=== PATIENT | female | born 1945 | race Caucasian/White ===

== ENCOUNTER 2019-10-15 14:36 | Inpatient (IN) ==
--- NOTE | 2019-10-15 17:19 | Emergency Department Note ---
Impression & Plan Pulmonary embolism, bilateral, Acute deep vein thrombosis (DVT) of right lower extremity, Acute dyspnea, Weakness, Hypokalemia, Hypomagnesemia ED Provider Note Provider: Daryl Gregorio MD DATE OF SERVICE: 10/15/2019 CHIEF COMPLAINT: Fatigue, DVT HISTORY OF PRESENT ILLNESS: Patient is a 74-year-old female with a history of hypertension, CKD, iron deficiency anemia presenting today with a complaint for the last 3 months of worsening fatigue and shortness of breath as well as dry cough. No fevers reported. Patient was seen in the [facility] clinic yesterday and had a ultrasound of her legs done today due to swelling which did show a DVT in the right leg. Referred here for further evaluation. Patient states diffuse fatigue and occasionally having some pain in all of her extremities at various points. Bilateral legs are somewhat swollen. States she has been trying to elevate them. Denies chest pain or abdominal pain. Denies fever. Denies recent travel herself. Patient states he does quite easily fatigued. Patient states distant family history of blood clots but denies personal history. States her doctor did hold her amlodipine yesterday. REVIEW OF SYSTEMS: A total of 10 review of systems was obtained and negative except as stated above in the HPI. PAST MEDICAL HISTORY: As noted above MEDICATIONS: Reviewed home medication list not currently on amlodipine, chlorth alidone though FMH: An aunt with a history of DVT SOCIAL HISTORY: Lives at home, non-smoker, daughter is visiting from [place] brought her here today. PHYSICAL EXAM: GENERAL: alert and oriented in no acute distress on stretcher appears fatigued Head: normocephalic and atraumatic EYES: No injection, discharge or icterus. NECK: Trachea midline. Supple. ENT: Mucous membranes pink and moist. LUNGS: Airway patent. No retractions. Breath sounds clear but with some diminished bases HEART: Regular rate and occasionally irregular rhythm. No chest wall tenderness ABDOMEN: Soft and non-tender, without guarding or rebound. SKIN: Acyanotic, warm, dry, without rashes EXTREMITIES: With 2+ lower extremity edema bilaterally. NEUROLOGICAL: No focal deficits. No aphasia. No facial droop or slurred speech. EK bpm sinus rhythm PACs. No acute ST segment elevation. PAC notable with a QTC of 516. Nonspecific lateral ST and T wave flattening, no priors available CONTINUOUS CARDIAC MONITORING: was ordered and showed a heart rate of 79 bpm in sinus rhythm with occasional PAC Patient's hypertension was referred to the hospitalist HOSPITAL COURSE: 160 Patient was first seen and H&P performed. 1907 discussed with the patient findings and recommend admission. Heparin drip will be started. [facility] hospitalist to be contacted [phone] Lebron who will admit the patient. [id number] Patient reassessed and updated. Patient and daughter were updated. Patient's laboratory studies and imaging reviewed. Differential includes Reactive airway disease, pneumonia, pneumothorax, COPD, CHF, infections, cardiac ischemia, pulmonary embolism, musculoskeletal, gastrointestinal, as well as other pathologies. IMPRESSION/MEDICAL DECISION MAKING: Patient presents with several months of shortness of breath weakness with increased lower leg swelling. Outpatient ultrasound concerning for right lower extremity DVT. However given the patient's complaints concerns could be a more systemic process. Basic labs were obtained as well as a chest x-ray and EKG. Chest x-ray questions a possible left lower lobe infiltrate. Given this and her shortness of breath a CT scan of the chest was completed. Evidence of bilateral PEs in addition to the DVT in her right lower extremity. Has not had ultrasound left lower extremity but could very well be similar DVT here. No significant pulmonary edema and I doubt acute heart failure. Patient does have evidence of some hypokalemia and hypomagnesemia possibly due to her diuretics. Patient will be started on heparin drip for anticoagulation. Detectable but not abnormal troponin. No active chest pain at this time. Patient was agreement for further evaluation as an inpatient. Hospitalist to be contacted. Doubt this represents coronavirus. DIAGNOSIS: Bilateral pulmonary embolisms, right leg DVT, shortness of breath, weakness, hypomagnesemia, hypokalemia DISPOSITION: Hospitalist will evaluate Patient was agreeable with this plan. Critical Care I have personally spent 36 minutes of critical care time in the direct management of this patient. This includes bedside care, interpretation of diagnostic studies, and testing, discussion with consultants, patient, and family members, and other required patient management activities. These 36 minutes is in excess of all separately billable procedures. Past Med/Surg History Social History Feels Safe at Home: Yes Allergies Allergies Allergy/AdvReac Type Severity Reaction Status Date / Time ciprofloxacin [From Cipro] AdvReac Severe Nausea Verified 10/15/19 17:54 procaine [From Novocain] AdvReac Severe Nausea Verified 10/15/19 17:54 Home Meds Home Medications Medication Instructions Recorded Confirmed Ca-D3-mag ex-yyjs-wpk-shantal-bor 1 tab PO DAILY 10/15/19 10/15/19 [Calcium 600-D3 Plus (mag-zinc)] amlodipine 2.5 mg PO .ON HOLD 10/15/19 10/15/19 cetirizine 5 mg PO DAILY PRN 10/15/19 10/15/19 chlorthalidone 50 mg PO DAILY 10/15/19 10/15/19 ferrous sulfate [iron] 325 mg PO DIRECTED 10/15/19 10/15/19 multivitamin 1 tab PO DAILY 10/15/19 10/15/19 potassium chloride [Klor-Con M20] 20 meq PO DAILY 10/15/19 10/15/19 turmeric root extract 500 mg PO DAILY 10/15/19 10/15/19 Results & Data (ED) Vital Signs Vital Signs - 24 hr 10/15/19 14:41 10/15/19 16:00 10/15/19 17:00 Temperature 37.2 C Temperature Source Oral Pulse Rate 82 Pulse Rate [Right Finger] 80 80 Pulse Rate from SpO2 Sensor Respiratory Rate 18 20 20 Respiratory Effort / Characteristics Non-Labored Non-Labored Spontaneous Non-Labored Spontaneous Respiratory Depth Normal Normal Normal Respiratory Pattern Regular Regular Regular Blood Pressure 171/101 H Blood Pressure [Right Arm] 168/99 H 165/95 H Blood Pressure Mean 124 Blood Pressure Mean [Right Arm] 122 118 Blood Pressure Position Sitting Blood Pressure Position [Right Arm] Lying Lying Pulse Oximetry 97 97 97 Oxygen Delivery Method Room Air Room Air Room Air Sepsis Recent Fever Within 48 Hours No Sepsis Action Taken by Nursing No Action Required 10/15/19 18:00 10/15/19 19:11 10/15/19 19:12 Temperature Temperature Source Pulse Rate 77 Pulse Rate [Right Finger] 80 75 Pulse Rate from SpO2 Sensor 77 Respiratory Rate 20 16 20 Respiratory Effort / Characteristics Non-Labored Spontaneous Non-Labored Spontaneous Respiratory Depth Normal Normal Respiratory Pattern Regular Blood Pressure 139/74 Blood Pressure [Right Arm] 158/99 H 139/74 Blood Pressure Mean 120 Blood Pressure Mean [Right Arm] 118 95 Blood Pressure Position Blood Pressure Position [Right Arm] Lying Lying Pulse Oximetry 97 98 99 Oxygen Delivery Method Room Air Room Air Sepsis Recent Fever Within 48 Hours Sepsis Action Taken by Nursing 10/15/19 21:26 Temperature Temperature Source Pulse Rate Pulse Rate [Right Finger] 89 Pulse Rate from SpO2 Sensor Respiratory Rate 20 Respiratory Effort / Characteristics Respiratory Depth Respiratory Pattern Blood Pressure Blood Pressure [Right Arm] 175/88 H Blood Pressure Mean Blood Pressure Mean [Right Arm] 117 Blood Pressure Position Blood Pressure Position [Right Arm] Pulse Oximetry 98 Oxygen Delivery Method Room Air Sepsis Recent Fever Within 48 Hours Sepsis Action Taken by Nursing Laboratory Data Result diagrams: 10/15/19 17:37 10/15/19 17:37 Lab Results 10/15/19 10/15/19 10/15/19 Range/Units 17:37 17:37 17:37 WBC 7.14 (4.8-10.8) K/uL RBC 3.62 L (4.2-5.4) M/uL Hgb 9.6 L (12.0-16.0) g/dL Hct 31.6 L (37-47) % MCV 87.3 (80-100) fL MCH 26.5 (25-34) pg MCHC 30.4 L (32-36) g/dL RDW Std Deviation 45.9 (36.4-46.3) fL RDW Coeff of Simran 15.8 H (11.5-14.5) % Plt Count 337 (130-400) K/uL MPV 8.8 (7.4-10.4) fL Immature Gran % (Auto) 0.4 % Neut % (Auto) 65.1 % Lymph % (Auto) 20.4 % Refug[place] % (Auto) 9.1 % Eos % (Auto) 4.3 % Baso % (Auto) 0.7 % Neut # (Auto) 4.64 (1.4-6.5) K/uL Lymph # (Auto) 1.46 (1.2-3.4) K/uL [place] # (Auto) 0.65 H (0.11-0.59) K/uL Eos # (Auto) 0.31 (0-0.5) K/uL Baso # (Auto) 0.05 (0-0.2) K/uL Immature Gran # (Auto) 0.03 H (0.00-0.02) K/uL PT 10.7 (9.0-12.0) Seconds INR 1.0 (0.9-1.1) APTT (21.0-31.0) Seconds PTT Ratio Sodium 139 (136-145) mmol/L Potassium 2.8 L (3.5-5.1) mmol/L Chloride 104 (98-107) mmol/L Carbon Dioxide 27 (21-32) mmol/L Anion Gap 8.0 (3-11) BUN 13 (7-18) mg/dl Creatinine 1.21 H (0.6-1.2) mg/dl Est Cr Clr Drug Dosing 46.0 ml/min Est GFR ( Amer) 50.7 Est GFR (Non-Af Amer) 43.7 BUN/Creatinine Ratio 10.4 (10-20) Glucose 91 (70-99) mg/dl Calcium 8.9 (8.5-10.1) mg/dl Magnesium (1.8-2.4) mg/dl Total Bilirubin 0.4 (0.2-1) mg/dl AST 18 (15-37) U/L ALT 22 (12-78) U/L Alkaline Phosphatase 111 (45-117) U/L Troponin I 0.020 (0-0.045) ng/ml NT-Pro-B Natriuret Pep 419 (0-900) pg/ml Total Protein 7.1 (6.4-8.2) gm/dl Albumin 3.5 (3.4-5.0) gm/dl Globulin 3.6 (2.5-4.0) gm/dl Albumin/Globulin Ratio 1.0 (0.9-2) 10/15/19 10/15/19 Range/Units 17:37 17:37 WBC (4.8-10.8) K/uL RBC (4.2-5.4) M/uL Hgb (12.0-16.0) g/dL Hct (37-47) % MCV (80-100) fL MCH (25-34) pg MCHC (32-36) g/dL RDW Std Deviation (36.4-46.3) fL RDW Coeff of Simran (11.5-14.5) % Plt Count (130-400) K/uL MPV (7.4-10.4) fL Immature Gran % (Auto) % Neut % (Auto) % Lymph % (Auto) % Refug[place] % (Auto) % Eos % (Auto) % Baso % (Auto) % Neut # (Auto) (1.4-6.5) K/uL Lymph # (Auto) (1.2-3.4) K/uL [place]ug[place] # (Auto) (0.11-0.59) K/uL Eos # (Auto) (0-0.5) K/uL Baso # (Auto) (0-0.2) K/uL Immature Gran # (Auto) (0.00-0.02) K/uL PT (9.0-12.0) Seconds INR (0.9-1.1) APTT 24.6 (21.0-31.0) Seconds PTT Ratio 0.9 Sodium (136-145) mmol/L Potassium (3.5-5.1) mmol/L Chloride (98-107) mmol/L Carbon Dioxide (21-32) mmol/L Anion Gap (3-11) BUN (7-18) mg/dl Creatinine (0.6-1.2) mg/dl Est Cr Clr Drug Dosing ml/min Est GFR ( Amer) Est GFR (Non-Af Amer) BUN/Creatinine Ratio (10-20) Glucose (70-99) mg/dl Calcium (8.5-10.1) mg/dl Magnesium 1.7 L (1.8-2.4) mg/dl Total Bilirubin (0.2-1) mg/dl AST (15-37) U/L ALT (12-78) U/L Alkaline Phosphatase (45-117) U/L Troponin I (0-0.045) ng/ml NT-Pro-B Natriuret Pep (0-900) pg/ml Total Protein (6.4-8.2) gm/dl Albumin (3.4-5.0) gm/dl Globulin (2.5-4.0) gm/dl Albumin/Globulin Ratio (0.9-2) Administered Medications Ioversol (Optiray 320 125ml) 92 ml IV ONCE PRN PRN Reason: Interaction Checking Stop: 10/19/19 18:48 Last Admin: 10/15/19 18:50 Dose: 92 ml Documented by: [id number] Discontinued Medications Heparin Sodium/Dextrose () 1 ea IV NOW STA; Protocol Stop: 10/15/19 19:16 Last Admin: 10/15/19 20:44 Dose: Not Given Documented by: [id number] Heparin Sodium/Dextrose (Heparin Sodium/Dextrose) 25,000 units in 500 mls @ 0.02 mls/hr IV .Q24H [facility]; Protocol Stop: 11/14/19 19:14 Last Admin: 10/15/19 20:37 Dose: Not Given Documented by: [id number] Potassium Chloride (Klor-Con M20) 40 meq PO NOW STA Stop: 10/15/19 19:40 Last Admin: 10/15/19 21:23 Dose: 40 meq Documented by: [id number] Discharge Plan Visit Data Chief Complaint: Leg Injury/Pain Stated Complaint: BLOOD CLOT RIGHT LEFT ED Provider: Daryl Gregorio Discharge Problem: Pulmonary embolism, bilateral, Acute deep vein thrombosis (DVT) of right lower extremity, Acute dyspnea, Weakness, Hypokalemia, Hypomagnesemia Patient Disposition: Admitted As Inpatient Condition: Fair Forms Stand Alone Forms: [facility] [employer] Prescriptions Prescriptions: No Action multivitamin Tablet 1 tab PO DAILY RF: 0 cetirizine 10 mg Tablet 5 mg PO DAILY PRN (Reason: allergies) RF: 0 amlodipine 5 mg tablet 2.5 mg PO .ON HOLD RF: 0 chlorthalidone 50 mg tablet 50 mg PO DAILY RF: 0 potassium chloride [Klor-Con M20] 20 mEq tablet,ER particles/crystals 20 meq PO DAILY RF: 0 ferrous sulfate [iron] 325 mg (65 mg iron) tablet 325 mg PO DIRECTED RF: 0 turmeric root extract 500 mg Capsule 500 mg PO DAILY RF: 0 Ca-D3-mag gv-xyvh-etp-shantal-bor [Calcium 600-D3 Plus (mag-zinc)] 600 mg calcium- 800 unit-50 mg Tablet 1 tab PO DAILY RF: 0 Referrals Referrals: Grace Dietz MD [Primary Care Provider] - Discharge Problem: Acute deep vein thrombosis (DVT) of right lower extremity Qualifiers: Affected thrombotic vein of extremity: popliteal Qualified Code(s): I82.431 - Acute embolism and thrombosis of right popliteal vein
[2019-10-15 17:47] LABS: Basophils # (auto) 0.05 K/uL (0-0.2); Basophils % (auto) 0.7 %; Eosinophils # (auto) 0.31 K/uL (0-0.5); Eosinophils % (auto) 4.3 %; Hematocrit (blood only) 31.6 % (37-47); Hemoglobin 9.6 g/dL (12.0-16.0); Immature Granulocytes # (auto) 0.03 K/uL (0.00-0.02); Immature Granulocytes % (auto) 0.4 %; Lymphocytes # (auto) 1.46 K/uL (1.2-3.4); Lymphocytes % (auto) 20.4 %; Mean Corpuscular Hemoglobin 26.5 pg (25-34); Mean Corpuscular Hgb Conc 30.4 g/dL (32-36); Mean Corpuscular Volume 87.3 fL (80-100); Mean Platelet Volume 8.8 fL (7.4-10.4); Monocytes # (auto) 0.65 K/uL (0.11-0.59); Monocytes % (auto) 9.1 %; Neutrophils # (auto) 4.64 K/uL (1.4-6.5); Neutrophils % (auto) 65.1 %; Platelet Count 337 K/uL (130-400); RDW Coefficient of Variation 15.8 % (11.5-14.5); RDW Standard Deviation 45.9 fL (36.4-46.3); Red Blood Count 3.62 M/uL (4.2-5.4); White Blood Count 7.14 K/uL (4.8-10.8)
[2019-10-15 17:56] LABS: Prothrombin Time 10.7 Seconds (9.0-12.0)
--- NOTE | 2019-10-15 17:59 | XRay Report ---
XR chest 1V portable CLINICAL HISTORY: Shortness of breath COMPARISON STUDY: No previous studies for comparison. FINDINGS: The heart is enlarged. There is a nonspecific opacity at the left medial lung base, possibl y resenting a focal pneumonia although[a mass could appear similar. There are no pleural effusions. T here is mild vascular prominence without evidence of overt failure. IMPRESSION: 1. Left medial basilar opacity, possibly representing a pneumonia although a mass could appear simila r. Clinical and radiographic follow-up is recommended. ACT 112: Negative or not required by law. Electronically signed by: Jose D Clements M.D. 10/15/2019 5:58 PM
[2019-10-15 18:02] LABS: Albumin Level 3.5 gm/dl (3.4-5.0); BUN Creatinine Ratio 10.4 (10-20); Calcium 8.9 mg/dl (8.5-10.1); Est GFR (African American) 50.7; Est GFR (Non-African American) 43.7; Potassium 2.8 mmol/L (3.5-5.1)
[2019-10-15 18:07] LABS: Bilirubin,Total 0.4 mg/dl (0.2-1); Globulin 3.6 gm/dl (2.5-4.0); Total Protein 7.1 gm/dl (6.4-8.2); Troponin I 0.02 ng/ml (0-0.045)
[2019-10-15] MEDS ORDERED: OPTIRAY 320 125ml IV PRN (18:49)
--- NOTE | 2019-10-15 19:08 | CT Scan Report ---
CT ANGIOGRAM OF THE CHEST CLINICAL HISTORY: Shortness of breath. DVT. Right leg swelling. Possible acute pulmonary embolism. AB NORMAL CHEST X-RAY COMPARISON STUDY: Chest x-ray dated 10/15/2019 TECHNIQUE: Following the IV administration of 92 mL of Optiray-320, CT angiogram of the thorax was pe rformed from the thoracic inlet to the lung bases utilizing the pulmonary embolus protocol. Images ar e reviewed in the axial, sagittal, and coronal planes. IV contrast was administered without complicat ion. MIP imaging was performed. A dose lowering technique was utilized adhering to the principles of ALARA. CT DOSE: 649.08 mGy.cm FINDINGS: No pathologically enlarged axillary mediastinal or hilar lymph nodes were visualized. There was no evidence of thoracic aortic dilatation. There are pulmonary filling defects within the left upper lobe and right lower lobe indicative of acu te pulmonary embolism. No pleural effusions are visualized. There is no lobar consolidation. There are dependent atelectatic changes. The opacity described on th e chest x-ray at the left medial lung base is secondary to a hiatal hernia. There is a solid 6.4 mm s ubpleural right lower lobe pulmonary nodule. There are 2 solid left lower lobe pulmonary nodules, the largest of which measures 5 mm. IMPRESSION: 1. Acute bilateral pulmonary embolism 2. Bilateral solid pulmonary nodules measuring up to 6.4 mm. A six-month follow-up CT scan is recomme nded. Please refer to below summary of Fleischner criteria recommendations for follow-up of incidental CT n odules (Brooklynn Roche, Guidelines for management of small pulmonary nodules detected on CT scans: A sta tement from the Fleischner Society, Radiology 237: [phone].) SOLID NODULES Solitary nodule size: <6 mm * low risk patients: no follow-up needed * high risk patients: optional CT at 12 months Solitary nodule size: 6-8 mm * low risk patients: follow-up at 6-12 months, then consider further follow-up at 18-24 months * high risk patients: initial follow-up CT at 6-12 months and then at 18-24 months if no change Solitary nodule size: >8 mm * either low or high risk patients - consider follow-up CT at 3 months, and/or CT-PET, and/or biopsy Multiple nodules size: <6 mm * low risk patients: no routine follow-up * high risk patients: optional CT at 12 months Multiple nodules size: 6-8 mm * low risk patients: follow-up at 3-6 months, then consider further follow-up at 18-24 months * high risk patients: follow-up at 3-6 months, then at 18-24 months if no change Multiple nodules size: >8 mm * low risk patients: follow-up at 3-6 months, then consider further follow-up at 18-24 months * high risk patients: follow-up at 3-6 months, then at 18-24 months if no change Note: newly detected indeterminate nodule in persons 35 years of age or older. * low risk patients: minimal or absent history of smoking and/or other known risk factors * high risk patients: history of smoking or of other known risk factors (e.g. first degree relative with lung cancer, or exposure to asbestos, radon, uranium) * if a nodule up to 8 mm is partly solid or is ground glass further follow-up is required after 24 m onths to exclude possible slow growing adenocarcinoma (HUGO) SUBSOLID NODULES Solitary pure ground-glass nodule * nodule size <6 mm - no CT follow-up required * nodule size >=6 mm - follow-up CT at 6-12 months, then every 2 years until 5 years Solitary part-solid nodule * nodule size <6 mm - no CT follow-up required * nodule size >=6 mm - follow-up CT at 3-6 months. If unchanged, and solid component remains <6 mm, then annual follow-up for 5 years Multiple subsolid nodules * nodule size <6 mm - follow-up CT at 3-6 months, consider further follow-up at 2 and 4 years if sta ble * nodule size >=6 mm - follow-up CT at 3-6 months, subsequent management based on the most suspiciou s nodule(s) ACT 112: Negative or not required by law. Electronically signed by: Jose D Clements M.D. 10/15/2019 7:07 PM
[2019-10-15] MEDS ORDERED: HEPARIN SODIUM/DEXTROSE 25,000 UNITS/500 ML BAG IV SCH (19:15)
[2019-10-15] MEDS ORDERED: POTASSIUM CHLORIDE 20 MEQ TABCR PO STA (19:39)
[2019-10-15 20:00] LABS: Magnesium 1.7 mg/dl (1.8-2.4)
[2019-10-15] MEDS ORDERED: PANTOprazole 40 MG TAB PO STA (21:21)
--- NOTE | 2019-10-15 21:21 | History & Physical Report ---
Date of Service October 15, 2019 Assessment & Plan (1) Pulmonary thromboembolism: First episode Unclear precipitant except for illness a few months ago Family history of blood clots as per patient hypertension, slight elevated Chronic anemia secondary to DIANA, hemoglobin stable at 9 secondary to likely UGIB (hx dark stools prior to recent EGD showing gastritis, duodenitis, hiatal hernia with clean based ulcer) and CKD Pulmonary nodules on CT Fatigue, sleepiness, exertional S OB, snoring hx rule out pulmonary HTN from possible sleep disordered breathing Hypokalemia secondary to home diuretic Rx Medical telemetry IV heparin Defer discussion regarding choice for home oral anticoagulation between patient and AM provider. PPI for GI prophylaxis while on anticoagulation given abnormal EGD if GI okay TTE RE exertional S OB rule out for hypertension, outpatient sleep study Outpatient follow-up surveillance imaging for pulmonary nodules on CT Replace electrolytes, hold home diuretics for now DVT prophylaxis IV heparin Full code Case discussed with Dr. Denise (GI specialist [facility] [employer].) He recommends initiating Protonix tablet once daily for patient given abnormal EGD and need for anticoagulation. Text document was generated using [employer] voice recognition software. It may contain grammatical or spelling errors. Kindly contact undersigned for clarification of any documentation item in question. History of Present Illness Chief Complaint: Shortness of breath, leg blood clots, sent by PCP Primary Care Provider: Grace Dietz MD History obtained from patient, family, and records. Medical history significant for hypertension, chronic renal insufficiency (baseline creatinine 1.4), chronic anemia (baseline hemoglobin of 9), morbid obesity. Patient is a resident of [place] who has been staying at her home in [place], [place] since last year to fix her local home to be able to sell it. 3 months history of chronic dry cough with shortness of breath usually on exertion. Body aches for which patient will take OTC aspirin. Sleepiness at home as per patient. Denies unusual headache symptoms. Leg swelling partially responsive to home diuretic Rx. 2 weeks ago, patient requested for blood work to be done at PCP's office because of feeling rundown. Occasional dark stools without abdominal pain as per patient. Outpatient hemoglobin noted to be 9.8. Anemia work-up consistent with iron deficiency. Outpatient COVID-19 test was negative. Patient started on iron supplements. Outpatient EGD last week showed normal esophagus, medium-sized hiatal hernia with clean-based ulcer. 1 suspected erosion. Gastritis and duodenitis. H. pylori testing was negative. Outpatient colonoscopy showed diverticulosis and polyp. Worsening shortness of breath, R leg swelling, fatigue symptoms in the next last few days. No chest pain. Dark stools without abdominal pain. Patient seen at PCPs office. Outpatient RLE venous Doppler showed nonocclusive thrombus right popliteal vein extending through peroneal and posterior tibial veins possibly acute. Soft tissue edema noted on the right cough. Patient directed to the ER for evaluation. IV heparin started at the ER for pulmonary embolism. Medical History as above Surgical History : Hysterectomy, carpal tunnel surgery, SUKHWINDER Family History : Blood clots, colon cancer, gallbladder cancer Personal/Social history : Non-smoker, occasional EtOH intake, retired from office work Allergies Allergy/AdvReac Type Severity Reaction Status Date / Time ciprofloxacin [From Cipro] AdvReac Severe Nausea Verified 10/15/19 17:54 procaine [From Novocain] AdvReac Severe Nausea Verified 10/15/19 17:54 Home Medications Home Medications Medication Instructions Recorded Confirmed Type Ca-D3-mag ch-ldqz-eus-shantal-bor 1 tab PO DAILY 10/15/19 10/15/19 History [Calcium 600-D3 Plus (mag-zinc)] amlodipine 2.5 mg PO .ON HOLD 10/15/19 10/15/19 History cetirizine 5 mg PO DAILY PRN 10/15/19 10/15/19 History chlorthalidone 50 mg PO DAILY 10/15/19 10/15/19 History ferrous sulfate [iron] 325 mg PO DIRECTED 10/15/19 10/15/19 History multivitamin 1 tab PO DAILY 10/15/19 10/15/19 History potassium chloride [Klor-Con M20] 20 meq PO DAILY 10/15/19 10/15/19 History turmeric root extract 500 mg PO DAILY 10/15/19 10/15/19 History Past Med/Surg History Social History Preferred Language: Citizen Of [place] Communication Ability: Effective 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 Beliefs That Will Affect Care: None Current Living Situation: Alone Other Information That Helps Us Care for You: No Feels Safe at Home: Yes Safety Concerns: Feels Safe At This Time Smoking Status: Never smoker Second Hand Exposure: Yes ; Hx Alcohol Use: No Hx Substance Use: No Review of Systems Review of Systems: As per HPI, all 10 systems reviewed, all other ROS negative Physical Exam Physical Exam: GENERAL: uncomfortable, slightly anxious, morbidly obese, no respiratory distress SKIN: Pallor , warm HEENT: Bespectacled, pale palpebral conjunctivae, no ptosis, dry buccal mucosa NECK : Supple, short neck, no tenderness CHEST : Decreased breath sounds , no tenderness HEART : RRR, no obvious murmurs ABDOMEN: Some distention, nontender EXTREMITIES : Bilateral LE swelling, R>L, RLE tenderness, no other conspicuous deformities noted NEUROLOGIC : Coherent, no facial asymmetry, no other gross focality Results & Data Results & Data ([facility]) Vital Signs (Past 12 Hours) Vital Signs Temp Pulse Pulse Resp BP BP Pulse Ox 10/15/19 19:12 75 20 139/74 99 10/15/19 18:00 80 20 158/99 H 97 10/15/19 17:00 80 20 165/95 H 97 10/15/19 16:00 80 20 168/99 H 97 10/15/19 14:41 37.2 C 82 18 171/101 H 97 Laboratory Results Laboratory Results WBC 7.14 K/uL (4.8-10.8) 10/15/19 17:37 RBC 3.62 M/uL (4.2-5.4) L 10/15/19 17:37 Hgb 9.6 g/dL (12.0-16.0) L 10/15/19 17:37 Hct 31.6 % (37-47) L 10/15/19 17:37 MCV 87.3 fL (80-100) 10/15/19 17:37 MCH 26.5 pg (25-34) 10/15/19 17:37 MCHC 30.4 g/dL (32-36) L 10/15/19 17:37 RDW Std Deviation 45.9 fL (36.4-46.3) 10/15/19 17:37 RDW Coeff of Simran 15.8 % (11.5-14.5) H 10/15/19 17:37 Plt Count 337 K/uL (130-400) 10/15/19 17:37 MPV 8.8 fL (7.4-10.4) 10/15/19 17:37 Immature Gran % (Auto) 0.4 % 10/15/19 17:37 Neut % (Auto) 65.1 % 10/15/19 17:37 Lymph % (Auto) 20.4 % 10/15/19 17:37 [place] % (Auto) 9.1 % 10/15/19 17:37 Eos % (Auto) 4.3 % 10/15/19 17:37 Baso % (Auto) 0.7 % 10/15/19 17:37 Neut # (Auto) 4.64 K/uL (1.4-6.5) 10/15/19 17:37 Lymph # (Auto) 1.46 K/uL (1.2-3.4) 10/15/19 17:37 [place] # (Auto) 0.65 K/uL (0.11-0.59) H 10/15/19 17:37 Eos # (Auto) 0.31 K/uL (0-0.5) 10/15/19 17:37 Baso # (Auto) 0.05 K/uL (0-0.2) 10/15/19 17:37 Immature Gran # (Auto) 0.03 K/uL (0.00-0.02) H 10/15/19 17:37 PT 10.7 Seconds (9.0-12.0) 10/15/19 17:37 INR 1.0 (0.9-1.1) 10/15/19 17:37 Sodium 139 mmol/L (136-145) 10/15/19 17:37 Potassium 2.8 mmol/L (3.5-5.1) L 10/15/19 17:37 Chloride 104 mmol/L (98-107) 10/15/19 17:37 Carbon Dioxide 27 mmol/L (21-32) 10/15/19 17:37 Anion Gap 8.0 (3-11) 10/15/19 17:37 BUN 13 mg/dl (7-18) 10/15/19 17:37 Creatinine 1.21 mg/dl (0.6-1.2) H 10/15/19 17:37 Est Cr Clr Drug Dosing 46.0 ml/min 10/15/19 17:37 Est GFR ( Amer) 50.7 10/15/19 17:37 Est GFR (Non-Af Amer) 43.7 10/15/19 17:37 BUN/Creatinine Ratio 10.4 (10-20) 10/15/19 17:37 Glucose 91 mg/dl (70-99) 10/15/19 17:37 Calcium 8.9 mg/dl (8.5-10.1) 10/15/19 17:37 Magnesium 1.7 mg/dl (1.8-2.4) L 10/15/19 17:37 Total Bilirubin 0.4 mg/dl (0.2-1) 10/15/19 17:37 AST 18 U/L (15-37) 10/15/19 17:37 ALT 22 U/L (12-78) 10/15/19 17:37 Alkaline Phosphatase 111 U/L (45-117) 10/15/19 17:37 Troponin I 0.020 ng/ml (0-0.045) 10/15/19 17:37 NT-Pro-B Natriuret Pep 419 pg/ml (0-900) 10/15/19 17:37 Total Protein 7.1 gm/dl (6.4-8.2) 10/15/19 17:37 Albumin 3.5 gm/dl (3.4-5.0) 10/15/19 17:37 Globulin 3.6 gm/dl (2.5-4.0) 10/15/19 17:37 Albumin/Globulin Ratio 1.0 (0.9-2) 10/15/19 17:[address] chest : 1. Acute bilateral pulmonary embolism 2. Bilateral solid pulmonary nodules measuring up to 6.4 mm. A six-month follow- up CT scan is recommended. Please refer to below summary of Fleischner criteria recommendations for follow- up of incidental CT nodules (Brooklynn Roche, Guidelines for management of small pulmonary nodules detected on CT scans: A statement from the Fleischner Society, Radiology 237: [id number].) SOLID NODULES Solitary nodule size: <6 mm * low risk patients: no follow-up needed * high risk patients: optional CT at 12 months Solitary nodule size: 6-8 mm * low risk patients: follow-up at 6-12 months, then consider further follow-up at 18-24 months * high risk patients: initial follow-up CT at 6-12 months and then at 18-24 months if no change Solitary nodule size: >8 mm * either low or high risk patients - consider follow-up CT at 3 months, and/or CT-PET, and/or biopsy Multiple nodules size: <6 mm * low risk patients: no routine follow-up * high risk patients: optional CT at 12 months Multiple nodules size: 6-8 mm * low risk patients: follow-up at 3-6 months, then consider further follow-up at 18-24 months * high risk patients: follow-up at 3-6 months, then at 18-24 months if no change Multiple nodules size: >8 mm * low risk patients: follow-up at 3-6 months, then consider further follow-up at 18-24 months * high risk patients: follow-up at 3-6 months, then at 18-24 months if no change Note: newly detected indeterminate nodule in persons 35 years of age or older. * low risk patients: minimal or absent history of smoking and/or other known risk factors * high risk patients: history of smoking or of other known risk factors (e.g. first degree relative with lung cancer, or exposure to asbestos, radon, uranium) * if a nodule up to 8 mm is partly solid or is ground glass further follow-up is required after 24 months to exclude possible slow growing adenocarcinoma (HUGO) SUBSOLID NODULES Solitary pure ground-glass nodule * nodule size <6 mm - no CT follow-up required * nodule size >=6 mm - follow-up CT at 6-12 months, then every 2 years until 5 years Solitary part-solid nodule * nodule size <6 mm - no CT follow-up required * nodule size >=6 mm - follow-up CT at 3-6 months. If unchanged, and solid component remains <6 mm, then annual follow-up for 5 years Multiple subsolid nodules * nodule size <6 mm - follow-up CT at 3-6 months, consider further follow-up at 2 and 4 years if stable * nodule size >=6 mm - follow-up CT at 3-6 months, subsequent management based on the most suspicious nodule(s) EKG as per my interpretation : Rate 80, NSR, normal axis, T wave abnormalities inferior and lateral leads
[2019-10-15 21:33] LABS: Partial Thromboplastin Ratio 0.9; Partial Thromboplastin Time 24.6 Seconds (21.0-31.0)
[2019-10-15] MEDS: HEPARIN SODIUM/DEXTROSE 25,000 UNITS/500 ML BAG IV SCH (21:39)
[2019-10-15] MEDS: Heparin IV Standard *NO* Bolus IV SCH ×3 (21:46→22:12)
[2019-10-15] MEDS ORDERED: ACETAMINOPHEN 325 MG TAB PO PRN (22:45)
[2019-10-15] MEDS ORDERED: TRAMADOL HCL 50 MG TABLET PO PRN (22:45)
[2019-10-15] MEDS ORDERED: AMLODIPINE BESYLATE 5 MG TAB PO ONE (22:45)
[2019-10-15] MEDS ORDERED: PROMETHAZINE HCL 12.5 MG in SODIUM CHLORIDE 0.9% 50 ML IV PRN (22:45)
[2019-10-15] MEDS ORDERED: POTASSIUM CHLORIDE 20 MEQ TABCR PO ONE (23:00)
[2019-10-15] MEDS ORDERED: ALBUMIN 25% 50 ML IV ONE (23:00)
[2019-10-15] MEDS ORDERED: MAGNESIUM SULFATE / D5W 1 GM/100 ML BAG IV ONE (23:00)
[2019-10-15 23:19] LABS: Thyroid Stimulating Hormone 3.29 uIu/ml (0.300-4.500)
[2019-10-16 03:56] LABS: Basophils # (auto) 0.04 K/uL (0-0.2); Basophils % (auto) 0.6 %; Eosinophils # (auto) 0.25 K/uL (0-0.5); Eosinophils % (auto) 3.8 %; Hematocrit (blood only) 26.8 % (37-47); Hemoglobin 8.4 g/dL (12.0-16.0); Immature Granulocytes # (auto) 0.02 K/uL (0.00-0.02); Immature Granulocytes % (auto) 0.3 %; Lymphocytes % (auto) 21.3 %; Mean Corpuscular Hemoglobin 26.8 pg (25-34); Mean Corpuscular Hgb Conc 31.3 g/dL (32-36); Mean Corpuscular Volume 85.6 fL (80-100); Monocytes # (auto) 0.61 K/uL (0.11-0.59); Monocytes % (auto) 9.3 %; Neutrophils # (auto) 4.25 K/uL (1.4-6.5); Neutrophils % (auto) 64.7 %; Platelet Count 317 K/uL (130-400); RDW Standard Deviation 45.8 fL (36.4-46.3); Red Blood Count 3.13 M/uL (4.2-5.4); White Blood Count 6.57 K/uL (4.8-10.8)
[2019-10-16 04:21] LABS: BUN Creatinine Ratio 10.3 (10-20); Calcium 8.6 mg/dl (8.5-10.1); Est GFR (African American) 49.2; Est GFR (Non-African American) 42.5; Magnesium 1.9 mg/dl (1.8-2.4); Potassium 3.4 mmol/L (3.5-5.1)
[2019-10-16 04:25] LABS: Partial Thromboplastin Ratio 1.9
[2019-10-16 04:41] LABS: Partial Thromboplastin Time 54.4 Seconds (21.0-31.0)
[2019-10-16] MEDS ORDERED: MAGNESIUM SULFATE / D5W 1 GM/100 ML BAG IV ONE (07:32)
[2019-10-16] MEDS ORDERED: POTASSIUM CHLORIDE 20 MEQ TABCR PO STA (07:32)
[2019-10-16] MEDS ORDERED: ACETAMINOPHEN 325 MG TAB PO PRN (07:33)
[2019-10-16] MEDS ORDERED: WARFARIN SOD 5 MG TAB PO ONE (07:33)
[2019-10-16] MEDS: POTASSIUM CHLORIDE 20 MEQ TABCR PO SCH (08:25)
[2019-10-16] MEDS: MULTIVITAMIN TAB PO SCH (08:25)
[2019-10-16] MEDS: AMLODIPINE BESYLATE 5 MG TAB PO SCH (08:26)
[2019-10-16 08:37] LABS: Partial Thromboplastin Ratio 2.7; Prothrombin Time 10.9 Seconds (9.0-12.0)
[2019-10-16 08:40] LABS: Partial Thromboplastin Time 76.6 Seconds (21.0-31.0)
--- NOTE | 2019-10-16 09:49 | Hospitalist Progress Note ---
Date of Service October 16, 2019 Assessment & Plan (1) Pulmonary thromboembolism: shortness of breath secondary to Acute Pulmonary Embolism Bilateral solid Pulmonary nodules Anticoagulated by anticoagulation therapy -as per 10/15/2019 ED notes "Patient is a 74-year-old female with a history of hypertension, CKD, iron deficiency anemia presenting today with a complaint for the last 3 months of worsening fatigue and shortness of breath as well as dry cough." -patient found to on 10/15/2019 to have CTA acute bilateral pulmonary embolism and Bilateral solid pulmonary nodules measuring up to 6.4 mm. -patient empirically on IV heparin and started on warfarin on 10/16/2019 as 5 mg daily with the plan to continue heparin IV and warfarin until therapeutic INR of 2 to 3 -will need to be on anticoagulation for minimal of 3 months, Family history of blood clots as per patient, and depending on outpatient hypercoagulable workup it is possible that patient may need more than 3 months anticaogulation -A six-month follow-up CT scan is recommended for the bilateral lung nodules -breathing on room air -echocardiogram pending (2) Anemia: Chronic anemia from Iron deficiency anemia -patient had recent EGD and colonoscopy as outpatient, there could be a risk that systemic anticoagulation can exacerbate anemia -continue pantoprazole -send FOBT with next bowel movement -monitor the CBC while inpatient Hypertension -continue low dose amlodipine daily as started by admitting physician -holding home dose chlorthalidone because of hypokalemia (3) Hypokalemia: -admission serum potassium 2.8 -serum potassium improving after potassium supplements, ordered additional potassium supplements on 10/16/2019 (4) Hypomagnesemia: -serum magnesium 1.7 on admission -serum magnesium improving after potassium supplements, ordered additional magnesium supplements on 10/16/2019 Obesity with BMI 45.5 -recommended outpatient weight management with primary care doctor Admission and Anticipated Discharge Date Admission Date: October 15, 2019 Subjective patient on room air. Iv herpain running. she reports her breathing feeling better subjectively. no respiratory distress. no chest chest pain. no palpitations. no dizziness. no headache. denies problems with using bathroom Review of Systems Review of Systems: All systems reviewed & are unremarkable except as noted in Subjective Physical Exam Constitutional: WD/WN, vitals as above + obese and comfortable Eyes: PERRL, conjunctivae normal, anicteric sclerae EOM intact bilaterally ENMT: external ear and nose normal, oropharynx normal Neck: trachea midline, no thyromegaly normal visual inspection Respiratory: normal respiratory effort, lungs clear to auscultation Cardiovascular: Rate/Rhythm: regular rate and regular rhythm Gastrointestinal (Abdomen): normal bowel sounds, soft, nontender, no hepatosplenomegaly Musculoskeletal: Head/Neck/Chest: normocephalic Extremities: + lower leg abnormality (bilateral large legs) Neurologic: PERRL, EOMI, accommodation nl, no face palsy, no dysarthria CN's II-XI intact bilaterally Psychiatric: A+Ox3, euthymic affect Results & Data Results & Data ([facility]) Vital Signs (Past 12 Hours) Vital Signs Temp Pulse Pulse Resp BP Pulse Ox 10/16/19 07:49 73 10/16/19 07:12 36.8 C 76 16 130/69 95 10/16/19 04:17 36.7 C 74 18 129/76 93 10/15/19 23:31 77 10/15/19 23:06 37 C 79 18 145/68 H 95 10/15/19 22:56 37.0 C 74 22 176/87 H 94
--- NOTE | 2019-10-16 13:22 | Electrocardiogram Report ---
Test Reason : Blood Pressure : / mmHG Vent. Rate : 079 BPM Atrial Rate : 079 BPM P-R Int : 170 ms QRS Dur : 090 ms QT Int : 450 ms P-R-T Axes : 056 004 054 degrees QTc Int : 516 ms Poor data quality, interpretation may be adversely affected Sinus rhythm with Premature atrial complexes Nonspecific ST and T wave abnormality Abnormal ECG No previous ECGs available Confirmed by Heath Madrid ([id number]) on 10/16/2019 1:22:21 PM Referred By: REFERRED SELF Confirmed By:Heath Madrid
[2019-10-16 17:26] LABS: Partial Thromboplastin Ratio 2.4
[2019-10-16 17:28] LABS: Partial Thromboplastin Time 66.4 Seconds (21.0-31.0)
[2019-10-16] MEDS: HEPARIN SODIUM/DEXTROSE 25,000 UNITS/500 ML BAG IV SCH (17:45)
[2019-10-16] MEDS: PANTOprazole 40 MG TAB PO SCH (20:00)
[2019-10-17 05:14] LABS: Basophils # (auto) 0.04 K/uL (0-0.2); Basophils % (auto) 0.6 %; Eosinophils # (auto) 0.31 K/uL (0-0.5); Eosinophils % (auto) 4.9 %; Hematocrit (blood only) 27.7 % (37-47); Hemoglobin 8.6 g/dL (12.0-16.0); Immature Granulocytes # (auto) 0.01 K/uL (0.00-0.02); Immature Granulocytes % (auto) 0.2 %; Lymphocytes # (auto) 1.61 K/uL (1.2-3.4); Lymphocytes % (auto) 25.3 %; Mean Corpuscular Volume 86.8 fL (80-100); Mean Platelet Volume 8.7 fL (7.4-10.4); Monocytes # (auto) 0.54 K/uL (0.11-0.59); Monocytes % (auto) 8.5 %; Neutrophils # (auto) 3.85 K/uL (1.4-6.5); Neutrophils % (auto) 60.5 %; Platelet Count 303 K/uL (130-400); RDW Coefficient of Variation 16.7 % (11.5-14.5); RDW Standard Deviation 47.6 fL (36.4-46.3); Red Blood Count 3.19 M/uL (4.2-5.4); White Blood Count 6.36 K/uL (4.8-10.8)
[2019-10-17 05:33] LABS: BUN Creatinine Ratio 11.1 (10-20); Calcium 8.6 mg/dl (8.5-10.1); Est GFR (African American) 40.4; Est GFR (Non-African American) 34.8; Potassium 3.8 mmol/L (3.5-5.1)
[2019-10-17 05:36] LABS: Albumin Globulin Ratio 0.9 (0.9-2); Bilirubin,Total 0.4 mg/dl (0.2-1); Globulin 3.5 gm/dl (2.5-4.0); Total Protein 6.5 gm/dl (6.4-8.2)
[2019-10-17 05:39] LABS: Partial Thromboplastin Ratio 2.7; Prothrombin Time 10.9 Seconds (9.0-12.0)
[2019-10-17] MEDS: AMLODIPINE BESYLATE 5 MG TAB PO SCH (09:02)
[2019-10-17] MEDS: POTASSIUM CHLORIDE 20 MEQ TABCR PO SCH (09:02)
[2019-10-17] MEDS: MULTIVITAMIN TAB PO SCH (09:02)
--- NOTE | 2019-10-17 12:55 | Hospitalist Progress Note ---
Date of Service October 17, 2019 Assessment & Plan (1) Pulmonary thromboembolism: shortness of breath secondary to Acute Pulmonary Embolism Bilateral solid Pulmonary nodules Anticoagulated by anticoagulation therapy -as per 10/15/2019 ED notes "Patient is a 74-year-old female with a history of h ypertension, CKD, iron deficiency anemia presenting today with a complaint for the last 3 months of worsening fatigue and shortness of breath as well as dry cough." -patient found to on 10/15/2019 to have CTA acute bilateral pulmonary embolism and Bilateral solid pulmonary nodules measuring up to 6.4 mm. -patient empirically on IV heparin and started on warfarin on 10/16/2019 as 5 mg daily with the plan to continue heparin IV and warfarin until therapeutic INR of 2 to 3 -will need to be on anticoagulation for minimal of 3 months, Family history of blood clots as per patient, and depending on outpatient hypercoagulable workup it is possible that patient may need more than 3 months anticoagulation -A six-month follow-up CT scan is recommended for the bilateral lung nodules -breathing on room air -echocardiogram performed on 10/16/2019 with results pending (2) Anemia: Chronic anemia from Iron deficiency anemia -patient had recent EGD and colonoscopy as outpatient, there could be a risk that systemic anticoagulation can exacerbate anemia -continue pantoprazole -Fecal occult blood stool negative -CBC stable above 8 (3) HTN (hypertension): -continue low dose amlodipine daily as started by admitting physician -holding home dose chlorthalidone because of recent hypokalemia Obesity with BMI 45.5 -recommended outpatient weight management with primary care doctor (4) Hypokalemia: -admission serum potassium 2.8 -serum potassium improving after potassium supplements, ordered additional potassium supplements on 10/16/2019 -serum potassium on 10/17/2019 is at goal (5) Hypomagnesemia: -serum magnesium 1.7 on admission -serum magnesium improving after potassium supplements, ordered additional magnesium supplements on 10/16/2019 Admission and Anticipated Discharge Date Admission Date: October 15, 2019 Subjective Patient seen and examined at bedside. eating lunch. no acute distress. on IV hep andreina. will get coumadin 5 mg daily at 4 PM. no dizziness. no headache. no chest pain. no trouble with breathing on room air. no abdomen pain. no reported gross bleeding from rectum Review of Systems Review of Systems: All systems reviewed & are unremarkable except as noted in Subjective Physical Exam Constitutional: WD/WN, vitals as above + obese and comfortable Eyes: PERRL, conjunctivae normal, anicteric sclerae EOM intact bilaterally ENMT: external ear and nose normal, oropharynx normal Neck: trachea midline, no thyromegaly normal visual inspection Respiratory: normal respiratory effort, lungs clear to auscultation Cardiovascular: Rate/Rhythm: regular rate and regular rhythm Gastrointestinal (Abdomen): normal bowel sounds, soft, nontender, no hepatosplenomegaly Musculoskeletal: Head/Neck/Chest: normocephalic Extremities: + lower leg abnormality (bilateral large legs) Neurologic: PERRL, EOMI, accommodation nl, no face palsy, no dysarthria CN's II-XI intact bilaterally Psychiatric: A+Ox3, euthymic affect Results & Data Results & Data ([facility]) Vital Signs (Past 12 Hours) Vital Signs Temp Pulse Resp BP Pulse Ox 10/17/19 11:58 36.3 C L 75 18 134/81 95 10/17/19 08:02 36.7 C 68 18 127/76 96 10/17/19 04:48 36.7 C 79 20 137/88 94
[2019-10-17 13:00] LABS: Partial Thromboplastin Ratio 2.2
[2019-10-17] MEDS: HEPARIN SODIUM/DEXTROSE 25,000 UNITS/500 ML BAG IV SCH ×2 (15:01→15:57)
[2019-10-17] MEDS ORDERED: WARFARIN SOD 5 MG TAB PO SCH (16:00)
[2019-10-17] MEDS: PANTOprazole 40 MG TAB PO SCH (20:10)
[2019-10-18 07:14] LABS: Basophils # (auto) 0.04 K/uL (0-0.2); Basophils % (auto) 0.6 %; Eosinophils # (auto) 0.31 K/uL (0-0.5); Eosinophils % (auto) 4.9 %; Hematocrit (blood only) 30.9 % (37-47); Hemoglobin 9.2 g/dL (12.0-16.0); Immature Granulocytes # (auto) 0.02 K/uL (0.00-0.02); Immature Granulocytes % (auto) 0.3 %; Lymphocytes # (auto) 1.67 K/uL (1.2-3.4); Lymphocytes % (auto) 26.3 %; Mean Corpuscular Hemoglobin 26.1 pg (25-34); Mean Corpuscular Hgb Conc 29.8 g/dL (32-36); Mean Corpuscular Volume 87.5 fL (80-100); Monocytes # (auto) 0.47 K/uL (0.11-0.59); Monocytes % (auto) 7.4 %; Neutrophils # (auto) 3.84 K/uL (1.4-6.5); Neutrophils % (auto) 60.5 %; Platelet Count 311 K/uL (130-400); RDW Coefficient of Variation 16.9 % (11.5-14.5); RDW Standard Deviation 50.6 fL (36.4-46.3); Red Blood Count 3.53 M/uL (4.2-5.4); White Blood Count 6.35 K/uL (4.8-10.8)
[2019-10-18 07:37] LABS: INR 1.1 (0.9-1.1); Partial Thromboplastin Ratio 2.1; Prothrombin Time 11.3 Seconds (9.0-12.0)
[2019-10-18 07:41] LABS: BUN Creatinine Ratio 13.7 (10-20); Calcium 8.9 mg/dl (8.5-10.1); Creatinine Clr Calc Pharmacy 38.5 ml/min; Est GFR (African American) 40.7; Est GFR (Non-African American) 35.1; Magnesium 1.7 mg/dl (1.8-2.4); Potassium 3.7 mmol/L (3.5-5.1)
[2019-10-18 08:00] LABS: Partial Thromboplastin Time 57.4 Seconds (21.0-31.0)
[2019-10-18] MEDS: AMLODIPINE BESYLATE 5 MG TAB PO SCH (09:00)
[2019-10-18] MEDS: POTASSIUM CHLORIDE 20 MEQ TABCR PO SCH (09:00)
[2019-10-18] MEDS: MULTIVITAMIN TAB PO SCH (09:00)
--- NOTE | 2019-10-18 11:45 | Hospitalist Progress Note ---
Date of Service October 18, 2019 Assessment & Plan (1) Pulmonary thromboembolism: shortness of breath secondary to Acute Pulmonary Embolism without cor pulmonale Bilateral solid Pulmonary nodules Anticoagulated by anticoagulation therapy -as per 10/15/2019 ED notes "Patient is a 74-year-old female with a history of hypertension, CKD, iron deficiency anemia presenting today with a complaint for the last 3 months of worsening fatigue and shortness of breath as well as dry cough." -patient found to on 10/15/2019 to have CTA acute bilateral pulmonary embolism and Bilateral solid pulmonary nodules measuring up to 6.4 mm. -patient empirically on IV heparin and started on warfarin on 10/16/2019 as 5 mg daily with the plan to continue heparin IV and warfarin until therapeutic INR of 2 to 3 -will need to be on anticoagulation for minimal of 3 months, Family history of blood clots as per patient, and depending on outpatient hypercoagulable workup it is possible that patient may need more than 3 months anticoagulation -A six-month follow-up CT scan is recommended for the bilateral lung nodules -breathing on room air -echocardiogram performed on 10/16/2019 with results not showing right heart strain -as of 10/18/2019: continue IV heparin bu increase couamdin to 7.5 mg daily (2) Anemia: Chronic anemia from Iron deficiency anemia -patient had recent EGD and colonoscopy as outpatient, there could be a risk that systemic anticoagulation can exacerbate anemia -continue pantoprazole -Fecal occult blood stool negative -CBC stable above 8 (3) HTN (hypertension): -transition from hospital amlodipine to home dose chlorthalidone 25 mg daily starting on 10/18/2019 and serum potassium stable Obesity with BMI 45.5 -recommended outpatient weight management with primary care doctor (4) Hypokalemia: -admission serum potassium 2.8 -serum potassium improving after potassium supplements, ordered additional potassium supplements on 10/16/2019 -serum potassium on 10/17/2019 is at goal (5) Hypomagnesemia: -serum magnesium 1.7 on admission -serum magnesium improving after potassium supplements, ordered additional magnesium supplements on 10/16/2019 -serum magnesium again 1.7 on 10/18/2019. give scheduled oral magnesium and additional IV magnesium Admission and Anticipated Discharge Date Admission Date: October 15, 2019 Subjective Patient with no acute distress. breathing on room air. no distress. no chest pain. no palpitations. no abdomen pain. no nausea. no vomiting. on IV heparin. she feels more puffy likely because of IV heparin and being off home dose chlorathlidone Review of Systems Review of Systems: All systems reviewed & are unremarkable except as noted in Subjective Physical Exam Constitutional: WD/WN, vitals as above Eyes: PERRL, conjunctivae normal, anicteric sclerae EOM intact bilaterally ENMT: external ear and nose normal, oropharynx normal Neck: normal visual inspection Respiratory: normal respiratory effort, lungs clear to auscultation Cardiovascular: Rate/Rhythm: regular rate Gastrointestinal (Abdomen): normal bowel sounds, soft, nontender, no hepatosplenomegaly Musculoskeletal: Head/Neck/Chest: normocephalic and head atraumatic Neurologic: PERRL, EOMI, accommodation nl, no face palsy, no dysarthria CN's II-XI intact bilaterally Psychiatric: A+Ox3, euthymic affect Results & Data Results & Data ([facility]) Vital Signs (Past 12 Hours) Vital Signs Temp Pulse Pulse Resp BP Pulse Ox 10/18/19 11:37 37.2 C 76 16 133/81 95 10/18/19 07:50 37.0 C 73 20 131/72 94 10/18/19 03:18 75 10/18/19 03:00 36.7 C 79 16 136/79 94 10/18/19 00:00 36.8 C 71 20 124/72 92
[2019-10-18] MEDS ORDERED: MAGNESIUM SULFATE / D5W 1 GM/100 ML BAG IV ONE (12:00)
[2019-10-18] MEDS: CHLORTHALIDONE 25 MG TAB PO SCH (12:52)
[2019-10-18] MEDS ORDERED: FUROSEMIDE 40 MG in SYRINGE 0 ML IV ONE (16:00)
[2019-10-18] MEDS: WARFARIN SOD 7.5 MG TAB PO SCH (16:24)
[2019-10-18] MEDS: HEPARIN SODIUM/DEXTROSE 25,000 UNITS/500 ML BAG IV SCH (16:25)
--- NOTE | 2019-10-18 16:48 | XRay Report ---
XR KUB/Abdomen 1 view CLINICAL HISTORY: right sided abdominal pain COMPARISON STUDY: No previous studies for comparison. FINDINGS: The soft tissues, psoas shadows, renal outlines and intestinal gas pattern appear normal. T here is no evidence for bowel obstruction. No abnormal abdominal calcifications are seen. IMPRESSION: Normal study. ACT 112: Negative or not required by law. The above report was generated using voice recognition software. It may contain grammatical, syntax or spelling errors. Electronically signed by: Александр Raman M.D. 10/18/2019 4:47 PM
[2019-10-18] MEDS: PANTOprazole 40 MG TAB PO SCH (21:10)
[2019-10-18] MEDS: MAGNESIUM OXIDE 400 MG TAB PO SCH (21:10)
[2019-10-19 07:45] LABS: INR 1.2 (0.9-1.1); Partial Thromboplastin Ratio 2.3; Prothrombin Time 12.6 Seconds (9.0-12.0)
[2019-10-19 07:47] LABS: BUN Creatinine Ratio 15.5 (10-20); Calcium 9.2 mg/dl (8.5-10.1); Creatinine Clr Calc Pharmacy 37.7 ml/min; Est GFR (African American) 40.4; Est GFR (Non-African American) 34.8; Magnesium 1.8 mg/dl (1.8-2.4); Potassium 3.4 mmol/L (3.5-5.1)
[2019-10-19 07:48] LABS: Partial Thromboplastin Time 64.8 Seconds (21.0-31.0)
[2019-10-19] MEDS: MAGNESIUM OXIDE 400 MG TAB PO SCH ×2 (08:39→20:04)
[2019-10-19] MEDS: CHLORTHALIDONE 25 MG TAB PO SCH (08:40)
[2019-10-19] MEDS: POTASSIUM CHLORIDE 20 MEQ TABCR PO SCH (08:40)
[2019-10-19] MEDS: MULTIVITAMIN TAB PO SCH (08:40)
[2019-10-19] MEDS: POLYETHYLENE (MIRALAX) 17 GM PACK PO SCH ×2 (08:49→20:06)
[2019-10-19] MEDS: SENNA 8.6 MG TAB PO SCH (08:50)
--- NOTE | 2019-10-19 10:34 | Hospitalist Progress Note ---
Date of Service October 19, 2019 Assessment & Plan (1) Pulmonary thromboembolism: shortness of breath secondary to Acute Pulmonary Embolism without cor pulmonale Bilateral solid Pulmonary nodules Anticoagulated by anticoagulation therapy -as per 10/15/2019 ED notes "Patient is a 74-year-old female with a history of hypertension, CKD, iron deficiency anemia presenting today with a complaint for the last 3 months of worsening fatigue and shortness of breath as well as dry cough." -patient found to on 10/15/2019 to have CTA acute bilateral pulmonary embolism and Bilateral solid pulmonary nodules measuring up to 6.4 mm. -patient empirically on IV heparin and started on warfarin on 10/16/2019 as 5 mg daily with the plan to continue heparin IV and warfarin until therapeutic INR of 2 to 3 -will need to be on anticoagulation for minimal of 3 months, Family history of blood clots as per patient, and depending on outpatient hypercoagulable workup it is possible that patient may need more than 3 months anticoagulation -A six-month follow-up CT scan is recommended for the bilateral lung nodules -breathing on room air -echocardiogram performed on 10/16/2019 with results not showing right heart strain -as of 10/18/2019: continue IV heparin but increase coumadin to 7.5 mg daily, INR is 1.2 on 10/19/2019 and continue coumadin 7.5 mg daily Abdominal Pain, right lower quadrant pain -normal KUB on 10/18/2019 with no acute findings, was given IV Lasix on 10/19/2019 x 1 in case of fluid retention. she is on bowel regimen -10/19/2019 patient concerned about appendicitis as she continues to have right sided abdominal pain despite bowel movements but no febrile temperature. we discussed CT scan of the abdomen/pelvis or CTA of the vasculature of the extremities but patient wants to avoid IV contrast because of CKD. instead will opt for ultrasound of lower extremities to identify clot burden or right/left legs Chronic kidney disease -renal function stable (2) Anemia: Chronic anemia from Iron deficiency anemia -patient had recent EGD and colonoscopy as outpatient, there could be a risk that systemic anticoagulation can exacerbate anemia -continue pantoprazole -Fecal occult blood stool negative -CBC stable above 8. recent Hgb 9.3 (3) HTN (hypertension): -transition from hospital amlodipine to home dose chlorthalidone 25 mg daily starting on 10/18/2019 and serum potassium stable Obesity with BMI 45.5 -recommended outpatient weight management with primary care doctor (4) Hypokalemia: -admission serum potassium 2.8 -improved after supplemation on this stay (5) Hypomagnesemia: -serum magnesium 1.7 on admission -serum magnesium improving after potassium supplements, ordered additional magnesium supplements on 10/16/2019 -serum magnesium again 1.7 on 10/18/2019. give scheduled oral magnesium and additional IV magnesium -10/19/2019 continue a daily oral magnesium for now Admission and Anticipated Discharge Date Admission Date: October 15, 2019 Subjective -normal KUB on 10/18/2019 with no acute findings, was given IV Lasix on 10/19/2019 x 1 in case of fluid retention. she is on bowel regimen -10/19/2019 patient concerned about appendicitis as she continues to have right sided abdominal pain despite bowel movements but no febrile temperature. we discussed CT scan of the abdomen/pelvis or CTA of the vasculature of the extremities but patient wants to avoid IV contrast because of CKD. instead will opt for ultrasound of lower extremities to identify clot burden or right/left legs INR is still subtherapeutic while on coumdin with IV herpain drip no chest pain, no shortness of breath, breathing on room air, no nausea, no vomiting, no dizziness, no headache, Review of Systems Review of Systems: All systems reviewed & are unremarkable except as noted in Subjective Physical Exam Constitutional: WD/WN, vitals as above + obese and comfortable Eyes: PERRL, conjunctivae normal, anicteric sclerae EOM intact bilaterally ENMT: external ear and nose normal, oropharynx normal Neck: trachea midline, no thyromegaly normal visual inspection Respiratory: normal respiratory effort, lungs clear to auscultation Cardiovascular: Rate/Rhythm: regular rate and regular rhythm Gastrointestinal (Abdomen): normal bowel sounds, soft, nontender, no hepatospl enomegaly Musculoskeletal: Head/Neck/Chest: normocephalic and head atraumatic Extremities: + lower leg abnormality (bilateral large legs) Neurologic: PERRL, EOMI, accommodation nl, no face palsy, no dysarthria CN's II-XI intact bilaterally Psychiatric: A+Ox3, euthymic affect Results & Data Results & Data ([facility]) Vital Signs (Past 12 Hours) Vital Signs Temp Pulse Pulse Resp BP Pulse Ox 10/19/19 08:00 101 H 06/27/20 07:26 36.6 C 80 16 120/71 99 10/19/19 03:12 36.4 C L 77 18 128/65 96 10/19/19 01:11 70 10/18/19 23:16 36.8 C 75 20 129/72 96
--- NOTE | 2019-10-19 10:50 | Electrocardiogram Report ---
Test Reason : Blood Pressure : / mmHG Vent. Rate : 086 BPM Atrial Rate : 086 BPM P-R Int : 182 ms QRS Dur : 088 ms QT Int : 374 ms P-R-T Axes : 052 011 041 degrees QTc Int : 447 ms Normal sinus rhythm Low voltage QRS Possible Inferior infarct , age undetermined Abnormal ECG When compared with ECG of 15-OCT-2019 21:42, Premature atrial complexes are no longer Present Nonspecific T wave abnormality, improved in Lateral leads QT has shortened Confirmed by Silvestre Reid ([id number]) on 10/19/2019 10:49:40 AM Referred By: REFERRED SELF Confirmed By:Sebastien Reid
--- NOTE | 2019-10-19 11:38 | Ultrasound Report ---
US venous doppler LE BI HISTORY: Dyspnea known PE, find source/area of clot COMPARISON STUDY: None. FINDINGS: Study is positive for acute deep venous thrombosis involving the right leg involving the po pliteal vein, posterior tibial vein, as well as peroneal vein. All remaining venous structures are unremarkable. IMPRESSION: 1. Acute deep venous thrombosis right leg involving the right popliteal, posterior tibial, and perone al vein. 2. Study is otherwise unremarkable. ACT 112: Negative or not required by law. The above report was generated using voice recognition software. It may contain grammatical, syntax or spelling errors. Electronically signed by: Александр Raman M.D. 10/19/2019 11:37 AM
[2019-10-19] MEDS: WARFARIN SOD 7.5 MG TAB PO SCH (15:59)
[2019-10-19] MEDS: HEPARIN SODIUM/DEXTROSE 25,000 UNITS/500 ML BAG IV SCH (15:59)
[2019-10-19] MEDS: PANTOprazole 40 MG TAB PO SCH (20:06)
[2019-10-20] MEDS: SENNA 8.6 MG TAB PO SCH (07:32)
[2019-10-20] MEDS: MULTIVITAMIN TAB PO SCH (07:32)
[2019-10-20] MEDS: POTASSIUM CHLORIDE 20 MEQ TABCR PO SCH (07:32)
[2019-10-20] MEDS: CHLORTHALIDONE 25 MG TAB PO SCH (07:32)
[2019-10-20] MEDS: MAGNESIUM OXIDE 400 MG TAB PO SCH ×2 (07:33→20:13)
[2019-10-20] MEDS: POLYETHYLENE (MIRALAX) 17 GM PACK PO SCH ×2 (07:33→20:12)
[2019-10-20 07:46] LABS: Basophils # (auto) 0.05 K/uL (0-0.2); Basophils % (auto) 0.9 %; Eosinophils # (auto) 0.32 K/uL (0-0.5); Eosinophils % (auto) 5.7 %; Hematocrit (blood only) 29.9 % (37-47); Hemoglobin 9.4 g/dL (12.0-16.0); Immature Granulocytes # (auto) 0.01 K/uL (0.00-0.02); Immature Granulocytes % (auto) 0.2 %; Lymphocytes # (auto) 1.32 K/uL (1.2-3.4); Lymphocytes % (auto) 23.6 %; Mean Corpuscular Hemoglobin 26.8 pg (25-34); Mean Corpuscular Hgb Conc 31.4 g/dL (32-36); Mean Corpuscular Volume 85.2 fL (80-100); Mean Platelet Volume 9.1 fL (7.4-10.4); Monocytes # (auto) 0.52 K/uL (0.11-0.59); Monocytes % (auto) 9.3 %; Neutrophils # (auto) 3.37 K/uL (1.4-6.5); Neutrophils % (auto) 60.3 %; Platelet Count 278 K/uL (130-400); RDW Coefficient of Variation 16.6 % (11.5-14.5); RDW Standard Deviation 50.5 fL (36.4-46.3); Red Blood Count 3.51 M/uL (4.2-5.4); White Blood Count 5.59 K/uL (4.8-10.8)
[2019-10-20 08:03] LABS: Albumin Level 3.5 gm/dl (3.4-5.0); BUN Creatinine Ratio 18.7 (10-20); Calcium 9.3 mg/dl (8.5-10.1); Creatinine Clr Calc Pharmacy 36.8 ml/min; Est GFR (African American) 39.1; Est GFR (Non-African American) 33.7; Potassium 3.6 mmol/L (3.5-5.1)
[2019-10-20 08:06] LABS: Bilirubin,Total 0.5 mg/dl (0.2-1); Globulin 3.7 gm/dl (2.5-4.0); Total Protein 7.2 gm/dl (6.4-8.2)
[2019-10-20 09:10] LABS: INR 1.6 (0.9-1.1); Partial Thromboplastin Ratio 2.4; Prothrombin Time 16.6 Seconds (9.0-12.0)
--- NOTE | 2019-10-20 12:10 | Hospitalist Progress Note ---
Date of Service October 20, 2019 Assessment & Plan (1) Pulmonary thromboembolism: shortness of breath secondary to Acute Pulmonary Embolism without cor pulmonale Bilateral solid Pulmonary nodules Anticoagulated by anticoagulation therapy -as per 10/15/2019 ED notes "Patient is a 74-year-old female with a history of hypertension, CKD, iron deficiency anemia presenting today with a complaint for the last 3 months of worsening fatigue and shortness of breath as well as dry cough." -patient found to on 10/15/2019 to have CTA acute bilateral pulmonary embolism and Bilateral solid pulmonary nodules measuring up to 6.4 mm. -patient empirically on IV heparin and started on warfarin on 10/16/2019 as 5 mg daily with the plan to continue heparin IV and warfarin until therapeutic INR of 2 to 3 -will need to be on anticoagulation for minimal of 3 months, Family history of blood clots as per patient, and depending on outpatient hypercoagulable workup it is possible that patient may need more than 3 months anticoagulation -A six-month follow-up CT scan is recommended for the bilateral lung nodules -breathing on room air -echocardiogram performed on 10/16/2019 with results not showing right heart strain -as of 10/18/2019: continue IV heparin but increased coumadin to 7.5 mg daily - INR is 1.6 on 10/20/2019 and now to continue coumadin as 6 mg daily Abdominal Pain, right lower quadrant pain Acute deep venous thrombosis right leg involving the right popliteal, posterior tibial, and peroneal vein. -normal KUB on 10/18/2019 with no acute findings, was given IV Lasix on 10/19/2019 x 1 in case of fluid retention. she is on bowel regimen -10/19/2019 patient concerned about appendicitis as she continues to have right sided abdominal pain despite bowel movements but no febrile temperature. we discussed CT scan of the abdomen/pelvis or CTA of the vasculature of the extremities but patient wants to avoid IV contrast because of CKD. ultrasound on 10/19/2019 identified source of pulmonary embolism as right leg deep vein thrombosis. patient's right sided abdomen pain could be related to clot burden because the right leg is more heavy due to DVT -10/20/2019 still some right sided discomfort but patient reports that the feeling below the belly and towards the right thigh. order Physical therapy to evaluate ambulation Chronic kidney disease -renal function stable (2) Anemia: Chronic anemia from Iron deficiency anemia -patient had recent EGD and colonoscopy as outpatient, there could be a risk that systemic anticoagulation can exacerbate anemia -continue pantoprazole -Fecal occult blood stool negative -CBC stable above 8. recent Hgb 9.3 (3) HTN (hypertension): -transition from hospital amlodipine to home dose chlorthalidone 25 mg daily starting on 10/18/2019 and serum potassium stable Obesity with BMI 45.5 -recommended outpatient weight management with primary care doctor (4) Hypokalemia: -admission serum potassium 2.8 -improved after supplemation on this stay (5) Hypomagnesemia: -serum magnesium 1.7 on admission -serum magnesium improving after potassium supplements, ordered additional magnesium supplements on 10/16/2019 -serum magnesium again 1.7 on 10/18/2019. give scheduled oral magnesium and additional IV magnesium -10/19/2019 continue a daily oral magnesium for now, serum magnesium is 2 on 10/20/2019 Admission and Anticipated Discharge Date Admission Date: October 15, 2019 Subjective no distress. breathing on room air. no shortness of breath. no abdomen pain. no chest pain. no nausea. no vomiting. no headache. no dizziness. still some right sided discomfort but patient reports that the feeling below the belly and towards the right thigh Review of Systems Review of Systems: All systems reviewed & are unremarkable except as noted in Subjective Physical Exam Constitutional: WD/WN, vitals as above + obese and comfortable Eyes: PERRL, conjunctivae normal, anicteric sclerae EOM intact bilaterally ENMT: external ear and nose normal, oropharynx normal Neck: trachea midline, no thyromegaly normal visual inspection Respiratory: normal respiratory effort, lungs clear to auscultation Cardiovascular: Rate/Rhythm: regular rate and regular rhythm Gastrointestinal (Abdomen): normal bowel sounds, soft, nontender, no hepatosplenomegaly Musculoskeletal: Head/Neck/Chest: normocephalic and head atraumatic Extremities: + lower leg abnormality (bilateral large legs, right greater than left) Neurologic: PERRL, EOMI, accommodation nl, no face palsy, no dysarthria CN's II-XI intact bilaterally Psychiatric: A+Ox3, euthymic affect Results & Data Results & Data ([facility]) Vital Signs (Past 12 Hours) Vital Signs Temp Pulse Pulse Resp BP Pulse Ox 10/20/19 07:35 36.9 C 72 16 130/72 94 06/28/20 04:06 36.5 C 74 20 128/68 93 10/20/19 01:18 81
[2019-10-20 15:04] LABS: Partial Thromboplastin Ratio 2.4
[2019-10-20 15:10] LABS: Partial Thromboplastin Time 67.9 Seconds (21.0-31.0)
[2019-10-20] MEDS: WARFARIN SOD 6 MG TAB PO SCH (16:08)
[2019-10-20] MEDS: HEPARIN SODIUM/DEXTROSE 25,000 UNITS/500 ML BAG IV SCH (18:06)
[2019-10-20] MEDS: PANTOprazole 40 MG TAB PO SCH (20:12)
[2019-10-20 21:54] LABS: Partial Thromboplastin Ratio 2.3
[2019-10-20 22:02] LABS: Partial Thromboplastin Time 63.1 Seconds (21.0-31.0)
[2019-10-21 06:53] LABS: Basophils # (auto) 0.05 K/uL (0-0.2); Eosinophils # (auto) 0.25 K/uL (0-0.5); Eosinophils % (auto) 4.8 %; Hematocrit (blood only) 29.6 % (37-47); Hemoglobin 9.1 g/dL (12.0-16.0); Immature Granulocytes # (auto) 0.01 K/uL (0.00-0.02); Immature Granulocytes % (auto) 0.2 %; Lymphocytes # (auto) 1.17 K/uL (1.2-3.4); Lymphocytes % (auto) 22.2 %; Mean Corpuscular Hemoglobin 26.6 pg (25-34); Mean Corpuscular Hgb Conc 30.7 g/dL (32-36); Mean Corpuscular Volume 86.5 fL (80-100); Mean Platelet Volume 8.8 fL (7.4-10.4); Monocytes # (auto) 0.58 K/uL (0.11-0.59); Neutrophils % (auto) 60.8 %; Platelet Count 255 K/uL (130-400); RDW Coefficient of Variation 16.5 % (11.5-14.5); RDW Standard Deviation 51.4 fL (36.4-46.3); Red Blood Count 3.42 M/uL (4.2-5.4); White Blood Count 5.26 K/uL (4.8-10.8)
[2019-10-21 07:13] LABS: INR 2.1 (0.9-1.1); Partial Thromboplastin Ratio 2.8; Prothrombin Time 21.1 Seconds (9.0-12.0)
[2019-10-21 07:16] LABS: Partial Thromboplastin Time 77.5 Seconds (21.0-31.0)
[2019-10-21 07:29] LABS: BUN Creatinine Ratio 17.4 (10-20); Calcium 8.8 mg/dl (8.5-10.1); Creatinine Clr Calc Pharmacy 33.6 ml/min; Est GFR (African American) 35.1; Est GFR (Non-African American) 30.3; Potassium 3.8 mmol/L (3.5-5.1)
[2019-10-21] MEDS: CHLORTHALIDONE 25 MG TAB PO SCH (07:32)
[2019-10-21] MEDS: MAGNESIUM OXIDE 400 MG TAB PO SCH ×2 (07:32→20:07)
[2019-10-21] MEDS: POTASSIUM CHLORIDE 20 MEQ TABCR PO SCH (07:33)
[2019-10-21] MEDS: SENNA 8.6 MG TAB PO SCH (07:33)
[2019-10-21] MEDS: POLYETHYLENE (MIRALAX) 17 GM PACK PO SCH ×2 (07:33→20:08)
[2019-10-21] MEDS: MULTIVITAMIN TAB PO SCH (07:33)
--- NOTE | 2019-10-21 09:16 | Hospitalist Progress Note ---
Date of Service October 21, 2019 Assessment & Plan (1) Pulmonary thromboembolism: shortness of breath secondary to Acute Pulmonary Embolism without cor pulmonale Bilateral solid Pulmonary nodules Anticoagulated by anticoagulation therapy -as per 10/15/2019 ED notes "Patient is a 74-year-old female with a history of hypertension, CKD, iron deficiency anemia presenting today with a complaint for the last 3 months of worsening fatigue and shortness of breath as well as dry cough." -patient found to on 10/15/2019 to have CTA acute bilateral pulmonary embolism and Bilateral solid pulmonary nodules measuring up to 6.4 mm. -patient empirically on IV heparin and started on warfarin on 10/16/2019 as 5 mg daily with the plan to continue heparin IV and warfarin until therapeutic INR of 2 to 3 -will need to be on anticoagulation for minimal of 3 months, Family history of blood clots as per patient, and depending on outpatient hypercoagulable workup it is possible that patient may need more than 3 months anticoagulation -A six-month follow-up CT scan is recommended for the bilateral lung nodules -breathing on room air -echocardiogram performed on 10/16/2019 with results not showing right heart strain -as of 10/18/2019: continue IV heparin but increased coumadin to 7.5 mg daily -INR is 1.6 on 10/20/2019 and now to continue coumadin as 6 mg daily -INR is 2.1 on 10/21/2019, will reheck INR around 1 PM to see if 2 therapeutic INR before considering to stop heparin IV. Patient continues to have right leg swelling and right leg pain. will request vascular surgery to evaluate as likley the pain is from clot burden Abdominal Pain, right lower quadrant pain Acute deep venous thrombosis right leg involving the right popliteal, posterior tibial, and peroneal vein. -normal KUB on 10/18/2019 with no acute findings, was given IV Lasix on 10/19/2019 x 1 in case of fluid retention. she is on bowel regimen -10/19/2019 patient concerned about appendicitis as she continues to have right sided abdominal pain despite bowel movements but no febrile temperature. we discussed CT scan of the abdomen/pelvis or CTA of the vasculature of the extremities but patient wants to avoid IV contrast because of CKD. ultrasound on 10/19/2019 identified source of pulmonary embolism as right leg deep vein thrombosis. patient's right sided abdomen pain could be related to clot burden because the right leg is more heavy due to DVT -10/20/2019 still some right sided discomfort but patient reports that the feeling below the belly and towards the right thigh. order Physical therapy to evaluate ambulation -10/21/2019 prn oxycodone for right leg/right thigh pain Chronic kidney disease -renal function stable (2) Anemia: Chronic anemia from Iron deficiency anemia -patient had recent EGD and colonoscopy as outpatient, there could be a risk that systemic anticoagulation can exacerbate anemia -continue pantoprazole -Fecal occult blood stool negative -CBC stable above 8. recent Hgb 9.1 (3) HTN (hypertension): -transition from hospital amlodipine to home dose chlorthalidone 25 mg daily starting on 10/18/2019 and serum potassium stable Obesity with BMI 45.5 -recommended outpatient weight management with primary care doctor (4) Hypokalemia: -admission serum potassium 2.8 -improved after supplemation on this stay (5) Hypomagnesemia: -serum magnesium 1.7 on admission -serum magnesium improving after potassium supplements, ordered additional magnesium supplements on 10/16/2019 -serum magnesium again 1.7 on 10/18/2019. give scheduled oral magnesium and additional IV magnesium -10/19/2019 continue a daily oral magnesium for now, serum magnesium is 2 on 10/20/2019 Admission and Anticipated Discharge Date Admission Date: October 15, 2019 Subjective -INR is 2.1 on 10/21/2019, will reheck INR around 1 PM to see if 2 therapeutic INR before considering to stop heparin IV. Patient continues to have right leg swelling and right leg pain. will request vascular surgery to evaluate as likely the pain is from clot burden no chest mayra. on room air. no shortness of breath. no abdomen pain, pain is mostly right thigh. no dizziness. no headache Review of Systems Review of Systems: All systems reviewed & are unremarkable except as noted in Subjective Physical Exam Constitutional: WD/WN, vitals as above + obese and comfortable Eyes: PERRL, conjunctivae normal, anicteric sclerae EOM intact bilaterally ENMT: external ear and nose normal, oropharynx normal Neck: trachea midline, no thyromegaly normal visual inspection Respiratory: normal respiratory effort, lungs clear to auscultation Cardiovascular: Rate/Rhythm: regular rate and regular rhythm Gastrointestinal (Abdomen): normal bowel sounds, soft, nontender, no hepatosplenomegaly Musculoskeletal: Head/Neck/Chest: normocephalic and head atraumatic Extremities: + lower leg abnormality (bilateral large legs, right greater than left) Neurologic: PERRL, EOMI, accommodation nl, no face palsy, no dysarthria CN's II-XI intact bilaterally Psychiatric: A+Ox3, euthymic affect Results & Data Results & Data ([facility]) Vital Signs (Past 12 Hours) Vital Signs Temp Pulse Resp BP Pulse Ox 10/21/19 07:01 36.4 C L 68 18 98/61 L 96 10/21/19 03:04 36.8 C 80 18 114/70 95 10/20/19 23:26 36.9 C 73 20 119/73 90
[2019-10-21] MEDS ORDERED: OXYCODONE HCL IR 5 MG TAB (IMMEDIATE RELEASE) PO STA (09:19)
[2019-10-21] MEDS ORDERED: OXYCODONE HCL IR 5 MG TAB (IMMEDIATE RELEASE) PO PRN (09:19)
--- NOTE | 2019-10-21 10:36 | Consultation ---
Date of Consultation October 21, 2019 Assessment & Plan (1) Acute deep vein thrombosis (DVT) of right lower extremity: Pt currently anticoagulated and is not requiring oxygen. Pt's RLE DVT only extends to popliteal vein and RLE is with soft edema only.No indications for vascular surgical intervention at this time. R groin pain not venous in nature; Suspect R groin pain related to musculoskeletal cause, but will defer to primary team. Recommended pt wear compression therapy, will place order for orthotics. Please call if needed. Affected thrombotic vein of extremity: popliteal Qualified Code(s): I82.431 - Acute embolism and thrombosis of right popliteal vein History of Present Illness Reason for Consultation: RLE DVT, leg pain Attending Physician: Maximino Harman MD History of Present Illness 74 yo f with hx of anemia, HTN, admitted with acute DVT/PE, seen in consultation today for RLE pain. Pt without prior hx of DVT. Has been traveling back and forth from [place] to [place] multiple times over past 1 year. Is active, but noted increased fatigue over past 1 yr. States noted increased edema over past few weeks and R calf pain, so underwent US which demonstrated RLE popliteal vein DVT. Also c/o R groin pain increased when she lifts her R leg. Was feeling LEDBETTER prior to arrival and noted to have BL PE as well. Denies HOFFMANN, fever, chills, chest pain, SOB, abd pain, N/V, rest pain, claudication, other complaints. Allergies Allergy/AdvReac Type Severity Reaction Status Date / Time ciprofloxacin [From Cipro] AdvReac Intermediate Nausea Verified 10/20/19 10:05 procaine [From Novocain] AdvReac Intermediate Nausea Verified 10/20/19 10:05 Home Medications Home Medications Medication Instructions Recorded Confirmed Type Ca-D3-mag ex-razg-bee-shantal-bor 1 tab PO DAILY 10/15/19 10/15/19 History [Calcium 600-D3 Plus (mag-zinc)] amlodipine 2.5 mg PO .ON HOLD 10/15/19 10/15/19 History cetirizine 5 mg PO DAILY PRN 10/15/19 10/15/19 History chlorthalidone 50 mg PO DAILY 10/15/19 10/15/19 History ferrous sulfate [iron] 325 mg PO DIRECTED 10/15/19 10/15/19 History multivitamin 1 tab PO DAILY 10/15/19 10/15/19 History potassium chloride [Klor-Con M20] 20 meq PO DAILY 10/15/19 10/15/19 History turmeric root extract 500 mg PO DAILY 10/15/19 10/15/19 History Patient History Social History Preferred Language: Frisian Communication Ability: Effective Mail Inserter Required: No Beliefs That Will Affect Care: None Current Living Situation: Alone Feels Safe at Home: Yes Smoking Status: Never smoker Second Hand Exposure: Yes ; Hx Alcohol Use: No Hx Substance Use: No Review of Systems Review of Systems: All systems reviewed & are unremarkable except as noted in HPI & below Physical Exam Constitutional: WD/WN, vitals as above + morbidly obese, healthy appearing and comfortable; not in distress Eyes: PERRL, conjunctivae normal, anicteric sclerae ENMT: external ear and nose normal, oropharynx normal Ears: no hearing impairment Neck: normal visual inspection Respiratory: normal respiratory effort, lungs clear to auscultation Auscultation: + diminished lung sounds Cardiovascular: Rate/Rhythm: regular rate and regular rhythm Vessels: normal peripheral pulses, normal carotid upstroke, femoral pulses present, posterior tibial pulses present, dorsalis pedis pulses present, brachial pulses present and radial pulses present Extremities: normal capillary refill and + edema (+2 BLE, nonpitting) Gastrointestinal (Abdomen): normal bowel sounds, soft, nontender, no hepatosplenomegaly Percussion/Palpation: + abdomen tender (R groin exquisitely tender) Musculoskeletal: no cyanosis or clubbing, extremities motor strength 5/5 Skin: no rashes, warm and dry Neurologic: moves all extremities and awake; no focal motor deficits and not confused Psychiatric: A+Ox3, euthymic affect Results & Data Vital Signs (Past 12 Hours) Vital Signs Temp Pulse Resp BP Pulse Ox 10/21/19 07:01 36.4 C L 68 18 98/61 L 96 10/21/19 03:04 36.8 C 80 18 114/70 95 10/20/19 23:26 36.9 C 73 20 119/73 90
[2019-10-21 13:06] LABS: INR 2.2 (0.9-1.1); Partial Thromboplastin Ratio 2.1; Prothrombin Time 21.8 Seconds (9.0-12.0)
[2019-10-21 14:22] LABS: Partial Thromboplastin Ratio 2.1
[2019-10-21 14:23] LABS: Partial Thromboplastin Time 59.1 Seconds (21.0-31.0)
[2019-10-21] MEDS: WARFARIN SOD 6 MG TAB PO SCH (16:09)
[2019-10-21] MEDS: PANTOprazole 40 MG TAB PO SCH (20:07)
[2019-10-22 06:36] LABS: BUN Creatinine Ratio 19.8 (10-20); Calcium 8.8 mg/dl (8.5-10.1); Creatinine Clr Calc Pharmacy 35.5 ml/min; Est GFR (African American) 37.6; Est GFR (Non-African American) 32.4; Potassium 3.5 mmol/L (3.5-5.1)
[2019-10-22] MEDS ORDERED: MICONAZOLE NITRATE POWDER 43 GM EXT PRN (08:16)
[2019-10-22] MEDS: MAGNESIUM OXIDE 400 MG TAB PO SCH (08:19)
[2019-10-22] MEDS: SENNA 8.6 MG TAB PO SCH ×2 (08:20→08:24)
[2019-10-22] MEDS: POTASSIUM CHLORIDE 20 MEQ TABCR PO SCH (08:20)
[2019-10-22] MEDS: CHLORTHALIDONE 25 MG TAB PO SCH (08:20)
[2019-10-22] MEDS: MULTIVITAMIN TAB PO SCH (08:20)
[2019-10-22] MEDS: POLYETHYLENE (MIRALAX) 17 GM PACK PO SCH (08:21)
[2019-10-22 08:50] LABS: Basophils # (auto) 0.05 K/uL (0-0.2); Eosinophils # (auto) 0.27 K/uL (0-0.5); Eosinophils % (auto) 5.6 %; Hematocrit (blood only) 32.7 % (37-47); Hemoglobin 9.9 g/dL (12.0-16.0); Immature Granulocytes # (auto) 0.01 K/uL (0.00-0.02); Immature Granulocytes % (auto) 0.2 %; Lymphocytes # (auto) 0.94 K/uL (1.2-3.4); Lymphocytes % (auto) 19.6 %; Mean Corpuscular Hemoglobin 26.2 pg (25-34); Mean Corpuscular Hgb Conc 30.3 g/dL (32-36); Mean Corpuscular Volume 86.5 fL (80-100); Mean Platelet Volume 9.6 fL (7.4-10.4); Monocytes # (auto) 0.32 K/uL (0.11-0.59); Monocytes % (auto) 6.7 %; Neutrophils % (auto) 66.9 %; Platelet Count 283 K/uL (130-400); RDW Coefficient of Variation 16.3 % (11.5-14.5); RDW Standard Deviation 50.5 fL (36.4-46.3); Red Blood Count 3.78 M/uL (4.2-5.4); White Blood Count 4.79 K/uL (4.8-10.8)
[2019-10-22 09:00] LABS: INR 2.6 (0.9-1.1); Prothrombin Time 25.9 Seconds (9.0-12.0)
[2019-10-22 09:17] LABS: Calcium 9.2 mg/dl (8.5-10.1); Creatinine Clr Calc Pharmacy 33.1 ml/min; Est GFR (African American) 34.6; Est GFR (Non-African American) 29.8; Potassium 3.5 mmol/L (3.5-5.1)
--- NOTE | 2019-10-22 10:05 | Discharge Summary ---
Date of Service October 22, 2019 Admission HPI Per Admitting Provider History obtained from patient, family, and records. Medical history significant for hypertension, chronic renal insufficiency (baseline creatinine 1.4), chronic anemia (baseline hemoglobin of 9), morbid obesity. Patient is a resident of [place] who has been staying at her home in [place], [place] since last year to fix her local home to be able to sell it. 3 months history of chronic dry cough with shortness of breath usually on exertion. Body aches for which patient will take OTC aspirin. Sleepiness at home as per patient. Denies unusual headache symptoms. Leg swelling partially responsive to home diuretic Rx. 2 weeks ago, patient requested for blood work to be done at PCP's office because of feeling rundown. Occasional dark stools without abdominal pain as per patient. Outpatient hemoglobin noted to be 9.8. Anemia work-up consistent with iron deficiency. Outpatient COVID-19 test was negative. Patient started on iron supplements. Outpatient EGD last week showed normal esophagus, medium-sized hiatal hernia with clean-based ulcer. 1 suspected erosion. Gastritis and duodenitis. H. pylori testing was negative. Outpatient colonoscopy showed diverticulosis and polyp. Worsening shortness of breath, R leg swelling, fatigue symptoms in the next last few days. No chest pain. Dark stools without abdominal pain. Patient seen at PCPs office. Outpatient RLE venous Doppler showed nonocclusive thrombus right popliteal vein extending through peroneal and posterior tibial veins possibly acute. Soft tissue edema noted on the right cough. Patient directed to the ER for evaluation. IV heparin started at the ER for pulmonary embolism. Medical History as above Surgical History : Hysterectomy, carpal tunnel surgery, SUKHWINDER Family History : Blood clots, colon cancer, gallbladder cancer Personal/Social history : Non-smoker, occasional EtOH intake, retired from office work Principal Diagnosis shortness of breath secondary to Acute Pulmonary Embolism (acute right lower extremity deep vein thrombosis) Bilateral solid Pulmonary nodules Anticoagulated by anticoagulation therapy Chronic anemia from Iron deficiency anemia Hypertension Hypokalemia: Hypomagnesemia: Obesity with BMI 45.5 Discharge Exam Constitutional WD/WN, vitals as above + obese and comfortable Eyes PERRL, conjunctivae normal, anicteric sclerae EOM intact bilaterally ENMT external ear and nose normal, oropharynx normal Neck trachea midline, no thyromegaly normal visual inspection Respiratory normal respiratory effort, lungs clear to auscultation Cardiovascular Rate/Rhythm: regular rate and regular rhythm Gastrointestinal (Abdomen) normal bowel sounds, soft, nontender, no hepatosplenomegaly Musculoskeletal Head/Neck/Chest: normocephalic and head atraumatic Extremities: + lower leg abnormality (bilateral large legs, right greater than left) Neurologic PERRL, EOMI, accommodation nl, no face palsy, no dysarthria CN's II-XI intact bilaterally Psychiatric A+Ox3, euthymic affect Discharge Data Allergies Allergy/AdvReac Type Severity Reaction Status Date / Time ciprofloxacin [From Cipro] AdvReac Intermediate Nausea Verified 10/20/19 10:05 procaine [From Novocain] AdvReac Intermediate Nausea Verified 10/20/19 10:05 Consultations 10/15/19 20:33 ED Decision to Admit Stat 10/21/19 09:15 Consult Vascular Surgery Routine Ordered Studies 10/15/19 18:10 CT angio chest PE protocol Stat 10/19/19 10:04 US venous doppler LE BI Routine Hospital Course (1) Pulmonary thromboembolism: shortness of breath secondary to Acute Pulmonary Embolism without cor pulmonale Bilateral solid Pulmonary nodules Anticoagulated by anticoagulation therapy -as per 10/15/2019 ED notes "Patient is a 74-year-old female with a history of hypertension, CKD, iron deficiency anemia presenting today with a complaint for the last 3 months of worsening fatigue and shortness of breath as well as dry cough." -patient found to on 10/15/2019 to have CTA acute bilateral pulmonary embolism and Bilateral solid pulmonary nodules measuring up to 6.4 mm. -patient empirically on IV heparin and started on warfarin on 10/16/2019 as 5 mg daily with the plan to continue heparin IV and warfarin until therapeutic INR of 2 to 3 -will need to be on anticoagulation for minimal of 3 months, Family history of blood clots as per patient, and depending on outpatient hypercoagulable workup it is possible that patient may need more than 3 months anticoagulation -A six-month follow-up CT scan is recommended for the bilateral lung nodules -breathing on room air -echocardiogram performed on 10/16/2019 with results not showing right heart strain -as of 10/18/2019: continue IV heparin but increased coumadin to 7.5 mg daily -INR is 1.6 on 10/20/2019 and now to continue coumadin as 6 mg daily -INR is 2.1 on 10/21/2019, will reheck INR around 1 PM to see if 2 therapeutic INR before considering to stop heparin IV. Patient continues to have right leg swelling and right leg pain. vascular surgery "Pt's RLE DVT only extends to popliteal vein and RLE is with soft edema only.No indications for vascular surgical intervention at this time. R groin pain not venous in nature; Suspect R groin pain related to musculoskeletal cause" and patient was given compression stockings by vascular service 10/22/2019 discharge medications sent electronically to [address] [address] coumadin (warfarin) as 6 mg daily (INR is 2.6 on 10/22/2019 and the goal is to keep INR between 2 to 3) pantoprazole daily for while being on coumadin to prevent gastrointestinal bleed acetaminophen 325 every 6 hours as needed for pain of fever, oxycodone 5 mg every 6 hours as needed for moderate or severe pain ( 16 tablets prescribed) senna daily if on oxycodone pain medications magnesium daily supplements 10/24/2019 10:40 AM Provider Sherley Monae MD Department Internal Medicine [facility] (patient should have serum potassium and serum magnesium and INR levels followed routinely by primary care doctor) (Patient will also be scheduled with coumadin clinic as outpatient, they will call her) 02/13/2020 1:40 PM Provider Grace Dietz MD Department Internal Medicine [facility] Abdominal Pain, right lower quadrant pain Acute deep venous thrombosis right leg involving the right popliteal, posterior tibial, and peroneal vein. -normal KUB on 10/18/2019 with no acute findings, was given IV Lasix on 10/19/2019 x 1 in case of fluid retention. she is on bowel regimen -10/19/2019 patient concerned about appendicitis as she continues to have right sided abdominal pain despite bowel movements but no febrile temperature. we discussed CT scan of the abdomen/pelvis or CTA of the vasculature of the extremities but patient wants to avoid IV contrast because of CKD. ultrasound on 10/19/2019 identified source of pulmonary embolism as right leg deep vein thro mbosis. patient's right sided abdomen pain could be related to clot burden because the right leg is more heavy due to DVT -10/20/2019 still some right sided discomfort but patient reports that the feel ing below the belly and towards the right thigh. order Physical therapy to evaluate ambulation -10/21/2019 prn oxycodone for right leg/right thigh pain -rollator prescription given to her on discharge day Chronic kidney disease -renal function stable (2) Anemia: Chronic anemia from Iron deficiency anemia -patient had recent EGD and colonoscopy as outpatient, there could be a risk that systemic anticoagulation can exacerbate anemia -continue pantoprazole -Fecal occult blood stool negative -CBC stable above 9 (3) HTN (hypertension): -was transitioned from hospital amlodipine to home dose chlorthalidone 25 mg daily starting on 10/18/2019 and serum potassium stable Obesity with BMI 45.5 -recommended outpatient weight management with primary care doctor (4) Hypokalemia: -admission serum potassium 2.8 -improved after supplemation on this stay (5) Hypomagnesemia: -serum magnesium 1.7 on admission -serum magnesium improving after potassium supplements, ordered additional magnesium supplements on 10/16/2019 -serum magnesium again 1.7 on 10/18/2019. give scheduled oral magnesium and additional IV magnesium -10/19/2019 continue a daily oral magnesium for now, serum magnesium is 2 on 10/20/2019 Total Time Total Time Spent Total Time Spent (In Minutes): 40 minutes Total Time Includes: Examination of the Patient, Discharge Planning, Medication Reconciliation and Communication With Other Providers Discharge Plan Discharge Items Patient Disposition: Home - Self-Care Reason For Visit: PE Discharge Diagnosis: shortness of breath secondary to Acute Pulmonary Embolism (acute right lower extremity deep vein thrombosis) Bilateral solid Pulmonary nodules Anticoagulated by anticoagulation therapy Chronic anemia from Iron deficiency anemia Hypertension Hypokalemia: Hypomagnesemia: Obesity with BMI 45.5 Condition on Discharge: Fair Non-emergency contact: Primary Care Provider Call non-emergency contact if: you have any medication questions Follow-up/Referrals: Grace Dietz MD [Primary Care Provider] - Diet: Heart Healthy Addtl Attending Provider Instructions: discharge medications sent electronically to [facility] [place] [address] coumadin (warfarin) as 6 mg daily (INR is 2.6 on 10/22/2019 and the goal is to keep INR between 2 to 3) pantoprazole daily for while being on coumadin to prevent gastrointestinal bleed acetaminophen 325 every 6 hours as needed for pain of fever, oxycodone 5 mg every 6 hours as needed for moderate or severe pain ( 16 tablets prescribed) senna daily if on oxycodone pain medications magnesium daily supplements 10/24/2019 10:40 AM Provider Sherley Monae MD Department Internal Medicine [facility] (patient should have serum potassium and serum magnesium and INR levels followed routinely by primary care doctor) (Patient will also be scheduled with coumadin clinic as outpatient, they will call her) 02/13/2020 1:40 PM Provider Grace Dietz MD Department Internal Medicine [facility] Pending Studies at Discharge: No Stand-Alone Forms: My [facility] [employer], Smoking Cessation Medications and DC Order Prescriptions: New acetaminophen 325 mg Tablet 325 mg PO Q6H PRN (Reason: fever or pain) 5 Days Qty: 20 RF: 0 magnesium oxide 400 mg (241.3 mg magnesium) Tablet 400 mg PO DAILY 15 Days Qty: 15 RF: 0 pantoprazole 40 mg Tablet,Delayed Release (Dr/Ec) 40 mg PO DAILY 30 Days Qty: 30 RF: 0 sennosides [Senokot] 8.6 mg Tablet 8.6 mg PO QAM 30 Days Qty: 30 RF: 0 warfarin [Coumadin] 6 mg Tablet 6 mg PO DAILY@1600 30 Days Qty: 30 RF: 0 oxycodone 5 mg Tablet 5 mg PO Q6H PRN (Reason: moderate and severe pain) 4 Days Qty: 16 RF: 0 Continued multivitamin Tablet 1 tab PO DAILY RF: 0 cetirizine 10 mg Tablet 5 mg PO DAILY PRN (Reason: allergies) RF: 0 chlorthalidone 50 mg tablet 50 mg PO DAILY RF: 0 potassium chloride [Klor-Con M20] 20 mEq tablet,ER particles/crystals 20 meq PO DAILY RF: 0 ferrous sulfate [iron] 325 mg (65 mg iron) tablet 325 mg PO DIRECTED RF: 0 turmeric root extract 500 mg Capsule 500 mg PO DAILY RF: 0 Ca-D3-mag kg-jmpb-cmw-shantal-bor [Calcium 600-D3 Plus (mag-zinc)] 600 mg ca lcium- 800 unit-50 mg Tablet 1 tab PO DAILY RF: 0 Discontinued amlodipine 5 mg tablet 2.5 mg PO .ON HOLD RF: 0 Discharge Orders: Discharge Order (Routine); Ordered 10/22/19 Ordered By: Maximino Harman Admission Data Admit Date/Time: 10/15/19 21:23 Attending Provider: Maximino Harman Admit Provider: Navjot Esparza Primary Care Provider: Grace Dietz Other Providers: Navjot Esparza ; Enzo James
== END 2019-10-22 12:36 | disposition home or self-care (01) | DRG 176 ==
LOC: ED 14:36 → 2N 21:23